=== PATIENT | male | born 1950 | race Caucasian/White ===

== ENCOUNTER 2017-09-12 21:09 | Inpatient (IN) | payer OTHER ==
[~2017-09-12] VITALS: Ht 180.3 cm; Wt 54.8 kg
[~2017-09-12 21:09] MED LIST: ALBUAER3 IN; BUDE160A3 IN; IPRIH IN; LAM100T OR; LORA-655 PO; PROP60CA8 PO; QUET25TA46 PO
[2017-09-12] MEDS ORDERED: SODIUM CHLORIDE 0.9% 1,000 ML IV ONE (22:50)
[2017-09-12] MEDS ORDERED: methylPREDNISolone SOD SUCC 125 MG/2 ML VL IV ONE (23:00)
[2017-09-12 23:21] LABS: Basophils # (auto) 0.1 uL; Basophils % (auto) 0.8 % (0.0-2.0); Eosinophils # (auto) 0.5 uL; Eosinophils % (auto) 6.8 % (0.0-7.0); Hematocrit 39.5 % (41.0-53.0); Hemoglobin 13.5 g/dL (13.5-17.5); Lymphocytes # (auto) 2.3 uL; Lymphocytes % (auto) 34.3 % (10.0-50.0); Mean Corpuscular Hemoglobin 32.9 pg (28.0-32.0); Mean Corpuscular Hgb Conc. 34.1 g/dL (32.0-36.0); Mean Corpuscular Volume 96.5 fL (80.0-100.0); Mean Platelet Volume 6.9 fL (6.9-10.8); Monocytes # (auto) 0.5 uL; Monocytes % (auto) 7.2 % (0.0-12.0); Neutrophils # (auto) 3.4 uL; Neutrophils % (auto) 50.9 % (37.0-80.0); Nucleated Red Blood Cells % 0.5 %; Platelet Count (auto) 224 10^3/uL (140-450); Red Cell Distribution Width 12.3 % (11.8-14.3); White Blood Cell 6.8 10^3/uL (4.4-10.8)
[2017-09-12 23:32] LABS: INR 0.97 (0.9-1.15); Prothrombin Time 10.6 sec (9.37-12.3)
[2017-09-12 23:39] LABS: Albumin 3.8 g/dL (3.4-5.0); BUN/Creatinine Ratio 14.1; Calcium 8.6 mg/dL (8.5-10.1); Magnesium 2.4 mg/dL (1.6-2.6)
[2017-09-12 23:42] LABS: Bilirubin, Total 0.4 mg/dL (0.2-1.0); Total Protein 7.2 g/dL (6.4-8.2)
[2017-09-12 23:45] LABS: B-Type Natriuretic Peptide 40.16 pg/mL (0-100)
[2017-09-13 01:27] LABS: Urine Bilirubin Negative (Negative); Urine Blood Negative /uL (Negative); Urine Color Yellow (Yellow); Urine Glucose Normal (Normal); Urine Ketone Negative (Negative); Urine Mucus FEW (None Seen); Urine Nitrite Negative (Negative); Urine RBC 2 /hpf (0 - 3); Urine Squamous Epithelial Cell FEW /hpf (<5); Urine Urobilinogen Normal (Negative)
[2017-09-13] MEDS ORDERED: LORazepam 0.5 MG TAB PO PRN (03:15)
[2017-09-13] MEDS ORDERED: MORPHINE SULF INJ 2 MG/ML SYRINGE 1ML IV PRN (03:15)
[2017-09-13] MEDS ORDERED: NITROGLYCERIN 0.4 MG SL TAB SL PRN (03:15)
[2017-09-13] MEDS ORDERED: LACTULOSE 20Gm/30ML SOLN PO PRN (03:15)
[2017-09-13] MEDS: SODIUM CHLORIDE 0.9% 1,000 ML IV SCH ×2 (04:28→16:03)
[2017-09-13] MEDS: IPRATROPIUM BROM 0.5 MG/2.5ML INH SOL NEB SCH ×5 (05:54→22:09)
[2017-09-13] MEDS: ALBUTEROL SULF 2.5 MG/0.5ML(0.5%) NEB SOLN NEB SCH ×5 (05:54→22:09)
[2017-09-13 07:05] VITALS: BP 122/69
[2017-09-13] MEDS: methylPREDNISolone SOD SUCC 125 MG/2 ML VL IV SCH ×2 (10:28→21:33)
[2017-09-13] MEDS: PANTOPRAZOLE 40 MG/10 ML VIAL IV SCH (10:28)
[2017-09-13] MEDS: ENOXAPARIN SOD 30 MG/0.3 ML SYRINGE SC SCH (10:29)
[2017-09-13] MEDS: lamoTRIgine 100 MG TAB PO SCH (10:29)
[2017-09-13] MEDS: QUEtiapine FUMARATE 25 MG TAB PO SCH ×2 (10:29→21:36)
[2017-09-13] MEDS: PROPRANOLOL HCL 20 MG TAB PO SCH ×2 (10:29→21:35)
[2017-09-13 11:29] LABS: Basophils # (auto) 0 uL; Basophils % (auto) 0.1 % (0.0-2.0); Eosinophils # (auto) 0 uL; Hematocrit 39.1 % (41.0-53.0); Hemoglobin 13.4 g/dL (13.5-17.5); Lymphocytes % (auto) 17.8 % (10.0-50.0); Mean Corpuscular Hemoglobin 33.1 pg (28.0-32.0); Mean Corpuscular Hgb Conc. 34.3 g/dL (32.0-36.0); Mean Corpuscular Volume 96.3 fL (80.0-100.0); Monocytes # (auto) 0.1 uL; Monocytes % (auto) 2.4 % (0.0-12.0); Neutrophils # (auto) 4.5 uL; Neutrophils % (auto) 79.7 % (37.0-80.0); Platelet Count (auto) 227 10^3/uL (140-450); Red Cell Distribution Width 12.4 % (11.8-14.3); White Blood Cell 5.7 10^3/uL (4.4-10.8)
[2017-09-13 11:50] LABS: Albumin 3.6 g/dL (3.4-5.0); BUN/Creatinine Ratio 17.3; Bilirubin, Total 0.5 mg/dL (0.2-1.0); Calcium 8.5 mg/dL (8.5-10.1); Potassium 3.9 mmol/L (3.5-5.1); Total Protein 6.8 g/dL (6.4-8.2)
[2017-09-13 18:12] VITALS: BP 123/74
[2017-09-13 22:00] VITALS: BP 107/64
[2017-09-14] MEDS: IPRATROPIUM BROM 0.5 MG/2.5ML INH SOL NEB SCH ×6 (00:43→22:40)
[2017-09-14] MEDS: ALBUTEROL SULF 2.5 MG/0.5ML(0.5%) NEB SOLN NEB SCH ×6 (00:44→22:40)
[2017-09-14 05:00] VITALS: BP 115/55
[2017-09-14 05:15] LABS: Basophils # (auto) 0 uL; Basophils % (auto) 0.1 % (0.0-2.0); Eosinophils # (auto) 0 uL; Hematocrit 38.5 % (41.0-53.0); Lymphocytes # (auto) 0.9 uL; Lymphocytes % (auto) 10.1 % (10.0-50.0); Mean Corpuscular Hgb Conc. 33.8 g/dL (32.0-36.0); Mean Corpuscular Volume 97.7 fL (80.0-100.0); Monocytes # (auto) 0.4 uL; Monocytes % (auto) 4.8 % (0.0-12.0); Neutrophils # (auto) 7.3 uL; Platelet Count (auto) 202 10^3/uL (140-450); Red Cell Distribution Width 12.4 % (11.8-14.3); White Blood Cell 8.6 10^3/uL (4.4-10.8)
[2017-09-14 05:43] LABS: Albumin 3.7 g/dL (3.4-5.0); BUN/Creatinine Ratio 21.3; Bilirubin, Total 0.5 mg/dL (0.2-1.0); Calcium 8.9 mg/dL (8.5-10.1); Potassium 4.3 mmol/L (3.5-5.1)
[2017-09-14 09:00] VITALS: BP 104/64
[2017-09-14] MEDS: PANTOPRAZOLE 40 MG/10 ML VIAL IV SCH (10:11)
[2017-09-14] MEDS: methylPREDNISolone SOD SUCC 125 MG/2 ML VL IV SCH ×2 (10:11→21:19)
[2017-09-14] MEDS: ENOXAPARIN SOD 30 MG/0.3 ML SYRINGE SC SCH (10:12)
[2017-09-14] MEDS: PROPRANOLOL HCL 20 MG TAB PO SCH ×2 (10:13→21:30)
[2017-09-14] MEDS: lamoTRIgine 100 MG TAB PO SCH (10:13)
[2017-09-14] MEDS: QUEtiapine FUMARATE 25 MG TAB PO SCH ×2 (10:13→21:20)
[2017-09-14 13:00] VITALS: BP 114/64
[2017-09-14 16:43] VITALS: BP 116/54
[2017-09-14 22:00] VITALS: BP 147/69
[2017-09-15] MEDS: IPRATROPIUM BROM 0.5 MG/2.5ML INH SOL NEB SCH ×7 (02:00→22:24)
[2017-09-15] MEDS: ALBUTEROL SULF 2.5 MG/0.5ML(0.5%) NEB SOLN NEB SCH ×7 (02:00→22:24)
[2017-09-15 06:09] VITALS: BP 112/63
[2017-09-15 09:00] VITALS: BP 118/71
[2017-09-15] MEDS: PROPRANOLOL HCL 20 MG TAB PO SCH ×2 (10:00→21:58)
[2017-09-15] MEDS: PANTOPRAZOLE 40 MG/10 ML VIAL IV SCH (10:00)
[2017-09-15] MEDS: methylPREDNISolone SOD SUCC 125 MG/2 ML VL IV SCH ×2 (10:00→21:56)
[2017-09-15] MEDS: ENOXAPARIN SOD 30 MG/0.3 ML SYRINGE SC SCH (10:00)
[2017-09-15] MEDS ORDERED: ADENOSINE 46 MG in GIVE UN-DILUTED 0 ML IV ONE (11:30)
[2017-09-15] MEDS ORDERED: ALBUTEROL SULF 2.5 MG/0.5ML(0.5%) NEB SOLN ONE (11:59)
[2017-09-15 12:14] VITALS: BP 140/70
[2017-09-15] MEDS: lamoTRIgine 100 MG TAB PO SCH (12:59)
[2017-09-15] MEDS: QUEtiapine FUMARATE 25 MG TAB PO SCH ×2 (12:59→21:57)
[2017-09-15 17:01] VITALS: BP 113/71
[2017-09-15 19:17] VITALS: BP 113/71
[2017-09-15 22:00] VITALS: BP 107/68
[2017-09-16] MEDS: IPRATROPIUM BROM 0.5 MG/2.5ML INH SOL NEB SCH ×2 (02:00→06:52)
[2017-09-16] MEDS: ALBUTEROL SULF 2.5 MG/0.5ML(0.5%) NEB SOLN NEB SCH ×2 (02:00→06:52)
[2017-09-16 05:00] VITALS: BP 109/64
[2017-09-16 06:00] LABS: Basophils # (auto) 0 uL; Eosinophils # (auto) 0 uL; Hematocrit 38.8 % (41.0-53.0); Hemoglobin 13.1 g/dL (13.5-17.5); Lymphocytes % (auto) 12.2 % (10.0-50.0); Mean Corpuscular Hemoglobin 32.9 pg (28.0-32.0); Mean Corpuscular Hgb Conc. 33.8 g/dL (32.0-36.0); Mean Corpuscular Volume 97.5 fL (80.0-100.0); Mean Platelet Volume 7.5 fL (6.9-10.8); Monocytes # (auto) 0.3 uL; Monocytes % (auto) 3.8 % (0.0-12.0); Neutrophils # (auto) 6.8 uL; Nucleated Red Blood Cells % 0.1 %; Platelet Count (auto) 187 10^3/uL (140-450); Red Cell Distribution Width 12.1 % (11.8-14.3); White Blood Cell 8.1 10^3/uL (4.4-10.8)
[2017-09-16 06:34] LABS: Albumin 3.8 g/dL (3.4-5.0); BUN/Creatinine Ratio 27.8; Bilirubin, Total 0.3 mg/dL (0.2-1.0); Potassium 4.3 mmol/L (3.5-5.1); Total Protein 6.9 g/dL (6.4-8.2)
[2017-09-16 08:24] VITALS: BP 125/75
[2017-09-16 08:57] VITALS: BP 125/75
== END 2017-09-16 09:38 | disposition home or self-care (01) | DRG 189 ==
LOC: EDBD 21:09 → ER 21:12 → TELE 21:13 → TELE-WESTW 09-13 17:05
PROVIDERS: ADMIT Family Medicine; ATTEND Internal Medicine
DX: J96.01 Acute respiratory failure with hypoxia (principal); E87.0 Hyperosmolality and hypernatremia; D68.69 Other thrombophilia; I48.91 Unspecified atrial fibrillation; E87.1 Hypo-osmolality and hyponatremia; E86.1 Hypovolemia; J44.0 Chronic obstructive pulmonary disease with (acute) lower respiratory infection; E16.2 Hypoglycemia, unspecified; F17.210 Nicotine dependence, cigarettes, uncomplicated; J44.1 Chronic obstructive pulmonary disease with (acute) exacerbation; I48.92 Unspecified atrial flutter; J45.901 Unspecified asthma with (acute) exacerbation; J98.11 Atelectasis; F43.10 Post-traumatic stress disorder, unspecified; I10 Essential (primary) hypertension; I25.10 Atherosclerotic heart disease of native coronary artery without angina pectoris; I73.9 Peripheral vascular disease, unspecified; F41.9 Anxiety disorder, unspecified; J20.9 Acute bronchitis, unspecified; Z82.3 Family history of stroke; Z82.49 Family history of ischemic heart disease and other diseases of the circulatory system; Z85.038 Personal history of other malignant neoplasm of large intestine; Z72.89 Other problems related to lifestyle; Z71.6 Tobacco abuse counseling
CPT/HCPCS: 36415; 71010; 78452; 80053; 81001; 83735; 83880; 84443; 84484; 85025; 85379; 85610; 85730; 93005; 93017; 93306; 93926; 94640; 96361; 96372; 96374; 96375; C9113; J0153

== ENCOUNTER 2017-10-20 17:37 | Inpatient (IN) | payer OTHER ==
[~2017-10-20] VITALS: Ht 185.4 cm; Wt 49.4 kg
[2017-10-20 18:48] LABS: Basophils # (auto) 0 uL; Basophils % (auto) 0.1 % (0.0-2.0); Eosinophils # (auto) 0 uL; Hematocrit 38.7 % (41.0-53.0); Hemoglobin 13.2 g/dL (13.5-17.5); Lymphocytes # (auto) 0.5 uL; Lymphocytes % (auto) 4.9 % (10.0-50.0); Mean Corpuscular Hemoglobin 32.1 pg (28.0-32.0); Mean Corpuscular Hgb Conc. 34.1 g/dL (32.0-36.0); Monocytes # (auto) 0.8 uL; Monocytes % (auto) 6.8 % (0.0-12.0); Neutrophils # (auto) 9.8 uL; Neutrophils % (auto) 88.2 % (37.0-80.0); Platelet Count (auto) 264 10^3/uL (140-450); Red Blood Cells 4.12 10^6/uL (4.5-5.90); Red Cell Distribution Width 12.6 % (11.8-14.3); White Blood Cell 11.1 10^3/uL (4.4-10.8)
[2017-10-20] MEDS ORDERED: HYDROcodone-ACET 10/325MG TAB PO ONE (19:00)
[2017-10-20 19:04] LABS: Albumin 3.2 g/dL (3.4-5.0); Anion Gap 8 (5-15); Blood Urea Nitrogen 13 mg/dL (7-18); Calcium 9.1 mg/dL (8.5-10.1); Carbon Dioxide 30 mmol/L (21-32); Chloride 84 mmol/L (98-107); Glucose 103 mg/dL (74-106); Potassium 3.7 mmol/L (3.5-5.1); Sodium 122 mmol/L (136-145)
[2017-10-20 19:06] LABS: Alanine Aminotransferase 16 U/L (16-61); Aspartate Aminotransferase 26 U/L (15-37); BUN/Creatinine Ratio 19.4; GFR African American 151 mL/min; GFR Non-African American 125 mL/min
[2017-10-20 19:21] LABS: Alkaline Phosphatase 80 U/L (45-117); Bilirubin, Total 0.9 mg/dL (0.2-1.0); Total Protein 7.5 g/dL (6.4-8.2)
[2017-10-21] VITALS (11 sets, daily range): BP systolic 102–130; BP diastolic 64–76
[2017-10-21] MEDS ORDERED: ACETAMINOPHEN 500 MG TAB PO PRN (00:45)
[2017-10-21] MEDS ORDERED: LORazepam 0.5 MG TAB PO PRN (00:45)
[2017-10-21] MEDS ORDERED: AZITHROMYCIN 500MG/ 250ML 250 ML IV ONE (00:45)
[2017-10-21] MEDS ORDERED: SODIUM CHLORIDE 0.9% 500 ML IV ONE (01:45)
[2017-10-21] MEDS: ALBUTEROL SULF 2.5 MG/0.5ML(0.5%) NEB SOLN NEB SCH ×3 (07:50→18:52)
[2017-10-21] MEDS: IPRATROPIUM BROM 0.5 MG/2.5ML INH SOL NEB SCH ×3 (07:50→18:52)
[2017-10-21 09:38] LABS: Basophils # (auto) 0 uL; Basophils % (auto) 0.1 % (0.0-2.0); Eosinophils # (auto) 0 uL; Hematocrit 37.6 % (41.0-53.0); Lymphocytes # (auto) 0.7 uL; Lymphocytes % (auto) 7.2 % (10.0-50.0); Mean Corpuscular Hemoglobin 32.5 pg (28.0-32.0); Mean Corpuscular Hgb Conc. 34.6 g/dL (32.0-36.0); Mean Corpuscular Volume 93.9 fL (80.0-100.0); Monocytes # (auto) 0.8 uL; Monocytes % (auto) 8.3 % (0.0-12.0); Neutrophils # (auto) 7.8 uL; Neutrophils % (auto) 84.4 % (37.0-80.0); Nucleated Red Blood Cells % 0.1 %; Platelet Count (auto) 291 10^3/uL (140-450); Red Blood Cells 4.01 10^6/uL (4.5-5.90); Red Cell Distribution Width 12.9 % (11.8-14.3); White Blood Cell 9.2 10^3/uL (4.4-10.8)
[2017-10-21 09:51] LABS: BUN/Creatinine Ratio 17.4; Calcium 9.2 mg/dL (8.5-10.1); Potassium 3.1 mmol/L (3.5-5.1)
[2017-10-21] MEDS: QUEtiapine FUMARATE 25 MG TAB PO SCH ×2 (10:29→21:36)
[2017-10-21] MEDS: lamoTRIgine 100 MG TAB PO SCH (10:29)
[2017-10-21] MEDS: AZITHROMYCIN 500MG/ 250ML 250 ML IV SCH (10:29)
[2017-10-21] MEDS ORDERED: SODIUM CHLORIDE 0.9% 1,000 ML IV ONE ×2 (13:15→14:15)
[2017-10-21] MEDS ORDERED: POTASSIUM CHL 10% (20 MEQ/15ML) 15ml ORAL SOLN GT ONE (13:30)
[2017-10-21] MEDS ORDERED: PANTOPRAZOLE 40 MG/10 ML VIAL IV ONE (13:30)
[2017-10-21] MEDS ORDERED: PIPERACILLIN-TAZOB 3.375GM 50 ML IV SCH (14:00)
[2017-10-21] MEDS: PIPERACILLIN-TAZOB 3.375GM 50 ML IV SCH ×3 (20:20→20:30)
[2017-10-21] MEDS: Nutren Pulmonary 250ml Bottle PO SCH (21:35)
[2017-10-22] MEDS: IPRATROPIUM BROM 0.5 MG/2.5ML INH SOL NEB SCH ×4 (00:29→19:11)
[2017-10-22] MEDS: ALBUTEROL SULF 2.5 MG/0.5ML(0.5%) NEB SOLN NEB SCH ×4 (00:29→19:11)
[2017-10-22] MEDS: PIPERACILLIN-TAZOB 3.375GM 50 ML IV SCH ×4 (02:33→20:04)
[2017-10-22 05:41] VITALS: BP 105/63
[2017-10-22] MEDS: Nutren Pulmonary 250ml Bottle PO SCH ×4 (06:02→22:00)
[2017-10-22 08:00] VITALS: BP 118/71
[2017-10-22 08:44] LABS: Albumin 2.7 g/dL (3.4-5.0); BUN/Creatinine Ratio 14.9; Bilirubin, Total 0.7 mg/dL (0.2-1.0); Calcium 8.5 mg/dL (8.5-10.1); Potassium 3.9 mmol/L (3.5-5.1); Total Protein 6.8 g/dL (6.4-8.2)
[2017-10-22 09:00] VITALS: BP 118/71
[2017-10-22 09:14] LABS: Basophils # (auto) 0 uL; Basophils % (auto) 0.2 % (0.0-2.0); Eosinophils # (auto) 0 uL; Eosinophils % (auto) 0.1 % (0.0-7.0); Hematocrit 33.5 % (41.0-53.0); Hemoglobin 11.5 g/dL (13.5-17.5); Lymphocytes # (auto) 0.6 uL; Lymphocytes % (auto) 9.9 % (10.0-50.0); Mean Corpuscular Hemoglobin 32.5 pg (28.0-32.0); Mean Corpuscular Hgb Conc. 34.4 g/dL (32.0-36.0); Mean Corpuscular Volume 94.5 fL (80.0-100.0); Monocytes # (auto) 0.9 uL; Monocytes % (auto) 15.1 % (0.0-12.0); Neutrophils # (auto) 4.7 uL; Neutrophils % (auto) 74.7 % (37.0-80.0); Nucleated Red Blood Cells % 0.1 %; Platelet Count (auto) 275 10^3/uL (140-450); Red Blood Cells 3.55 10^6/uL (4.5-5.90); Red Cell Distribution Width 12.7 % (11.8-14.3); White Blood Cell 6.2 10^3/uL (4.4-10.8)
[2017-10-22] MEDS: lamoTRIgine 100 MG TAB PO SCH (09:24)
[2017-10-22] MEDS: QUEtiapine FUMARATE 25 MG TAB PO SCH ×2 (09:24→22:57)
[2017-10-22] MEDS: PANTOPRAZOLE 40 MG/10 ML VIAL IV SCH (09:24)
[2017-10-22] MEDS ORDERED: methylPREDNISolone SOD SUCC 125 MG/2 ML VL IV ONE (09:45)
[2017-10-22] MEDS: AZITHROMYCIN 500MG/ 250ML 250 ML IV SCH (11:19)
[2017-10-22] MEDS: SODIUM CHLORIDE 0.9% 1,000 ML IV SCH ×2 (11:19→17:45)
[2017-10-22 13:00] VITALS: BP 94/54
[2017-10-22 17:00] VITALS: BP 104/68
[2017-10-22] MEDS: HYDROcodone-ACET 5/325MG TAB PO PRN (20:04)
[2017-10-22 22:23] VITALS: BP 126/76
[2017-10-23] MEDS: ALBUTEROL SULF 2.5 MG/0.5ML(0.5%) NEB SOLN NEB SCH ×4 (00:50→18:45)
[2017-10-23] MEDS: IPRATROPIUM BROM 0.5 MG/2.5ML INH SOL NEB SCH ×4 (00:50→18:45)
[2017-10-23] MEDS: SODIUM CHLORIDE 0.9% 1,000 ML IV SCH ×3 (02:20→20:47)
[2017-10-23] MEDS: PIPERACILLIN-TAZOB 3.375GM 50 ML IV SCH ×4 (02:20→20:47)
[2017-10-23 05:19] VITALS: BP 106/66
[2017-10-23] MEDS: Nutren Pulmonary 250ml Bottle PO SCH ×4 (05:57→21:54)
[2017-10-23 08:14] LABS: Basophils # (auto) 0 uL; Basophils % (auto) 0.1 % (0.0-2.0); Eosinophils # (auto) 0 uL; Hematocrit 33.3 % (41.0-53.0); Hemoglobin 11.2 g/dL (13.5-17.5); Lymphocytes # (auto) 0.6 uL; Lymphocytes % (auto) 11.2 % (10.0-50.0); Mean Corpuscular Hemoglobin 31.9 pg (28.0-32.0); Mean Corpuscular Hgb Conc. 33.8 g/dL (32.0-36.0); Mean Corpuscular Volume 94.6 fL (80.0-100.0); Monocytes # (auto) 0.8 uL; Monocytes % (auto) 14.5 % (0.0-12.0); Neutrophils # (auto) 3.9 uL; Neutrophils % (auto) 74.2 % (37.0-80.0); Platelet Count (auto) 300 10^3/uL (140-450); Red Blood Cells 3.52 10^6/uL (4.5-5.90); White Blood Cell 5.2 10^3/uL (4.4-10.8)
[2017-10-23 08:41] LABS: Albumin 2.6 g/dL (3.4-5.0); BUN/Creatinine Ratio 18.5; Bilirubin, Total 0.5 mg/dL (0.2-1.0); Calcium 8.5 mg/dL (8.5-10.1); Potassium 3.9 mmol/L (3.5-5.1); Total Protein 6.6 g/dL (6.4-8.2)
[2017-10-23 09:00] VITALS: BP 129/80
[2017-10-23] MEDS ORDERED: methylPREDNISolone SOD SUCC 125 MG/2 ML VL IM SCH (10:00)
[2017-10-23] MEDS: QUEtiapine FUMARATE 25 MG TAB PO SCH ×2 (10:49→21:54)
[2017-10-23] MEDS: lamoTRIgine 100 MG TAB PO SCH (10:49)
[2017-10-23] MEDS: PANTOPRAZOLE 40 MG/10 ML VIAL IV SCH (10:49)
[2017-10-23] MEDS: AZITHROMYCIN 500MG/ 250ML 250 ML IV SCH (10:49)
[2017-10-23] MEDS: HYDROcodone-ACET 5/325MG TAB PO PRN (12:42)
[2017-10-23 13:00] VITALS: BP 124/69
[2017-10-23 17:00] VITALS: BP 111/76
[2017-10-23] MEDS ORDERED: PROMETHAZINE W/CODEINE 5 ML ORAL SYRUP PO PRN (19:00)
[2017-10-23 20:00] VITALS: BP 123/74
[2017-10-23 21:38] VITALS: BP 123/74
[2017-10-24] MEDS: IPRATROPIUM BROM 0.5 MG/2.5ML INH SOL NEB SCH ×2 (00:45→11:51)
[2017-10-24] MEDS: ALBUTEROL SULF 2.5 MG/0.5ML(0.5%) NEB SOLN NEB SCH ×3 (00:50→11:50)
[2017-10-24] MEDS: PIPERACILLIN-TAZOB 3.375GM 50 ML IV SCH ×2 (02:30→08:30)
[2017-10-24] MEDS: SODIUM CHLORIDE 0.9% 1,000 ML IV SCH (05:00)
[2017-10-24 06:02] VITALS: BP 118/63
[2017-10-24] MEDS: Nutren Pulmonary 250ml Bottle PO SCH (06:10)
[2017-10-24 07:04] LABS: Basophils # (auto) 0 uL; Eosinophils # (auto) 0 uL; Hematocrit 30.7 % (41.0-53.0); Hemoglobin 10.5 g/dL (13.5-17.5); Mean Corpuscular Hemoglobin 32.5 pg (28.0-32.0); Mean Corpuscular Hgb Conc. 34.1 g/dL (32.0-36.0); Mean Corpuscular Volume 95.3 fL (80.0-100.0); Monocytes # (auto) 0.7 uL; Monocytes % (auto) 9.9 % (0.0-12.0); Neutrophils # (auto) 5.8 uL; Neutrophils % (auto) 77.1 % (37.0-80.0); Platelet Count (auto) 320 10^3/uL (140-450); Red Blood Cells 3.22 10^6/uL (4.5-5.90); Red Cell Distribution Width 12.9 % (11.8-14.3); White Blood Cell 7.5 10^3/uL (4.4-10.8)
[2017-10-24 07:24] LABS: Albumin 2.4 g/dL (3.4-5.0); BUN/Creatinine Ratio 19.7; Bilirubin, Total 0.5 mg/dL (0.2-1.0); Calcium 8.5 mg/dL (8.5-10.1); Potassium 4.1 mmol/L (3.5-5.1); Total Protein 6.2 g/dL (6.4-8.2)
[2017-10-24 08:56] VITALS: BP 126/69
[2017-10-24] MEDS: HYDROcodone-ACET 5/325MG TAB PO PRN (09:59)
[2017-10-24 11:54] VITALS: BP 126/69
[2017-10-24 13:00] VITALS: BP 109/53
== END 2017-10-24 14:23 | disposition home or self-care (01) | DRG 640 ==
LOC: ER 17:37 → EDBD 17:37 → TELE 17:38 → TELE-CENTR 10-21 07:54
PROVIDERS: ADMIT Nurse Practitioner Family; ATTEND Family Medicine
DX: E87.1 Hypo-osmolality and hyponatremia (principal); J18.9 Pneumonia, unspecified organism; E44.0 Moderate protein-calorie malnutrition; I48.2 Chronic atrial fibrillation; E86.0 Dehydration; J44.0 Chronic obstructive pulmonary disease with (acute) lower respiratory infection; J44.1 Chronic obstructive pulmonary disease with (acute) exacerbation; E87.6 Hypokalemia; D64.9 Anemia, unspecified; F17.210 Nicotine dependence, cigarettes, uncomplicated; F43.10 Post-traumatic stress disorder, unspecified; F41.9 Anxiety disorder, unspecified; I10 Essential (primary) hypertension; I70.0 Atherosclerosis of aorta; Z82.3 Family history of stroke; Z82.49 Family history of ischemic heart disease and other diseases of the circulatory system; Z85.038 Personal history of other malignant neoplasm of large intestine; Z79.899 Other long term (current) drug therapy
CPT/HCPCS: 36415; 71046; 80048; 80053; 83735; 84484; 85025; 87040; 87070; 87077; 87081; 87186; 87205; 87400; 93005; 94640; 94761; 96365; C9113; J2543

== ENCOUNTER 2018-02-15 06:56 | Emergency (ER) | payer OTHER ==
[~2018-02-15] VITALS: Ht 182.9 cm; Wt 54.4 kg
[2018-02-15] MEDS ORDERED: SODIUM CHLORIDE 0.9% 1,000 ML IV ONE (07:57)
[2018-02-15 08:48] LABS: Basophils # (auto) 0 uL; Basophils % (auto) 0.2 % (0.0-2.0); Eosinophils # (auto) 0.1 uL; Eosinophils % (auto) 0.6 % (0.0-7.0); Hematocrit 45.3 % (41.0-53.0); Lymphocytes # (auto) 1.7 uL; Lymphocytes % (auto) 11.4 % (10.0-50.0); Mean Corpuscular Hgb Conc. 33.1 g/dL (32.0-36.0); Mean Corpuscular Volume 96.5 fL (80.0-100.0); Monocytes # (auto) 1.2 uL; Monocytes % (auto) 8.4 % (0.0-12.0); Neutrophils # (auto) 11.7 uL; Neutrophils % (auto) 79.4 % (37.0-80.0); Platelet Count (auto) 236 10^3/uL (140-450); Red Blood Cells 4.69 10^6/uL (4.5-5.90); Red Cell Distribution Width 13.4 % (11.8-14.3); White Blood Cell 14.8 10^3/uL (4.4-10.8)
[2018-02-15 08:59] LABS: INR 0.94 (0.9-1.15); Partial Thromboplastin Time 28.7 sec (23.78-33.04); Prothrombin Time 10.1 sec (9.27-12.13)
[2018-02-15 09:06] LABS: Alanine Aminotransferase 16 U/L (16-61); Albumin 3.7 g/dL (3.4-5.0); Anion Gap 11 (5-15); Aspartate Aminotransferase 17 U/L (15-37); BUN/Creatinine Ratio 14.1; Blood Urea Nitrogen 12 mg/dL (7-18); Calcium 9.1 mg/dL (8.5-10.1); Carbon Dioxide 25 mmol/L (21-32); Chloride 91 mmol/L (98-107); GFR African American 115 mL/min; GFR Non-African American 95 mL/min; Glucose 84 mg/dL (74-106); Magnesium 2.3 mg/dL (1.6-2.6); Potassium 3.9 mmol/L (3.5-5.1); Sodium 127 mmol/L (136-145)
[2018-02-15 09:11] LABS: Alkaline Phosphatase 78 U/L (45-117); Bilirubin, Total 1.1 mg/dL (0.2-1.0); Total Protein 8.2 g/dL (6.4-8.2)
[2018-02-15 09:25] VITALS: BP 119/64
[2018-02-15 10:17] LABS: Urine WBC None Seen /hpf (0 - 3)
[2018-02-15 10:44] LABS: Urine Bacteria NONE SEEN /hpf (None Seen); Urine Blood Negative /uL (Negative); Urine Specific Gravity 1.018 (1.001-1.035)
[2018-02-15] MEDS ORDERED: ALBUTEROL SULF 2.5 MG/0.5ML(0.5%) NEB SOLN NEB ONE (11:30)
[2018-02-15] MEDS ORDERED: IPRATROPIUM BROM 0.5 MG/2.5ML INH SOL NEB ONE (11:30)
== END 2018-02-15 12:12 | disposition home or self-care (01) ==
LOC: EDBD 06:56 → ER 06:56
DX: J44.1 Chronic obstructive pulmonary disease with (acute) exacerbation (principal); I10 Essential (primary) hypertension; R19.7 Diarrhea, unspecified; I48.91 Unspecified atrial fibrillation; F17.210 Nicotine dependence, cigarettes, uncomplicated
CPT/HCPCS: 36415; 71046; 80053; 81001; 83735; 83880; 84443; 84484; 85025; 85610; 85730; 93005; 94761; 96360; 96361